=== PATIENT | female | born 1960 | race Caucasian/White ===

== ENCOUNTER 2017-01-12 09:29 | Day surgery (SDC) | payer OTHER ==
[2017-01-12] MEDS ORDERED: BUPIVACAINE HCL 0.25% MPF 10 ML SOL INFIL ONE (10:30)
[2017-01-12] MEDS: DEXAMETHASONE SOD PHOS PF 10 MG/ML SOL IJ ONE ×2 (10:37→10:43)
[2017-01-12 10:52] VITALS: PULSE 78; RESP 16; TEMP 98; O2SAT 97
[2017-01-12 10:56] VITALS: BP 145/83
== END 2017-01-12 11:10 | disposition home or self-care (01) ==
LOC: SURG 09:29
PROVIDERS: ATTEND Nurse Anesthetist, Certified Registered
DX: M54.5 Low back pain (principal); M54.16 Radiculopathy, lumbar region
CPT/HCPCS: 64483; 77003; J1100

== ENCOUNTER 2017-07-13 10:42 | Day surgery (SDC) | payer OTHER ==
[2017-07-13] MEDS ORDERED: BUPIVACAINE HCL 0.25% MPF 10 ML SOL INFIL ONE (11:43)
[2017-07-13] MEDS ORDERED: DEXAMETHASONE SOD PHOS PF 10 MG/ML SOL IJ ONE (11:43)
[2017-07-13 11:53] VITALS: RESP 20
[2017-07-13 12:14] VITALS: TEMP 97.7; O2SAT 97
[2017-07-13 12:37] VITALS: BP 137/86; PULSE 78
== END 2017-07-13 12:27 | disposition home or self-care (01) ==
LOC: SURG 10:42
PROVIDERS: ATTEND Nurse Anesthetist, Certified Registered
DX: M54.16 Radiculopathy, lumbar region (principal)
CPT/HCPCS: J1100